=== PATIENT | male | born 1990 | race African-American/Black ===

== ENCOUNTER 2019-08-18 17:35 | Emergency (ER) | payer BC ==
[2019-08-18] MEDS ORDERED: Sodium Chloride 0.9% 10 ML Syringe FLUSH PRN (17:41)
[2019-08-18] MEDS ORDERED: Sodium Chloride 0.9% 10 ML SDV IV PRN (17:41)
[2019-08-18] MEDS ORDERED: Sodium Chloride 0.9% 1,000 ML IV STA (17:41)
[2019-08-18] MEDS ORDERED: Metoclopramide 10 MG/2 ML SDV IVPUSH ONE (17:41)
[2019-08-18] MEDS ORDERED: Sodium Chloride 0.9% 2.5 ML Syringe FLUSH PRN (17:41)
--- NOTE | 2019-08-18 17:58 | CT ---
Head CT Technique: Multiple axial sections through the brain were obtained. Intravenous contrast was not utilized. Comparison: No prior intracranial imaging is available. Findings: Ventricles along with basal cisterns and sulci over the convexities appear within normal limits for the patient's age. No abnormal parenchymal densities are seen. No evidence of intracranial hemorrhage. No midline shift or mass-effect is seen. Soft tissue density is noted within the right side of the sphenoid sinus most likely due to retention cyst. Possible minimal retention cyst with the left side of the sphenoid sinus. No acute mastoid sinus findings are seen. Bone window settings shows no acute calvarial abnormality. Impression: 1. Sinus findings which are most likely chronic. 2. No acute intracranial abnormality is identified. Diagnostic code #2 This report was dictated in MDT
--- NOTE | 2019-08-18 18:02 | CR ---
Chest: AP view of the chest was obtained. Comparison: No prior study. Scoliosis is noted within the spine. Heart size and mediastinum are normal. Lungs are clear with no acute parenchymal change. Impression: 1. Scoliosis. 2. Nothing acute is seen on AP chest x-ray. Diagnostic code #2 This report was dictated in MDT
--- NOTE | 2019-08-18 18:37 | EDM.PDOC ---
ED [facility] GENERAL MEDICAL PROBLEM - General Chief Complaint: Neurological Problem Stated Complaint: ARM NUMBNESS,BLURRED VISION,SHORTNESS OF BREATHE Time Seen by Provider: 08/18/19 17:40 - History of Present Illness INITIAL COMMENTS - FREE TEXT/NARRATIVE: HISTORY AND PHYSICAL: History of present illness: 28-year-old male who presents with a sudden onset of headache followed by left eye blurred vision and left upper extremity weakness with paresthesias in his left upper extremity. Is unusual for him. He does have migraines. He did take some Aleve but did not get any better so he came to the emergency department. He denies any fever or trauma. No other associated signs or symptoms. No other modifying, aggravating or alleviating factors. Review of systems: A 10-point review of systems, other than pertinent positives and negatives as stated per HPI, is otherwise negative. Past medical history: As per history of present illness and as reviewed below otherwise noncontributory. Surgical history: As per history of present illness and as reviewed below otherwise noncontributory. Social history: No reported history of drug or alcohol abuse. Family history: As per history of present illness and as reviewed below otherwise noncontributory. Physical exam: VITAL SIGNS: Reviewed. GENERAL: Concerned about his condition but awake alert and appropriate and does not appear to be in physiologic distress. HEAD: No signs of head trauma. EYES: Pupils are equal. Extraocular motions intact. EARS: Hearing grossly intact. MOUTH: Oropharynx is normal. NECK: No adenopathy, no JVD. CHEST: Chest with clear breath sounds bilaterally. No wheezes, rales, or rhonchi. CARDIAC: Regular rate and rhythm. Normal S1 and S2, without murmurs, gallops, or rubs. VASCULAR: Peripheral pulses normal and equal in all extremities. ABDOMEN: Soft, without detectable tenderness. No sign of distention. No rebound or guarding, and no masses palpated. MUSCULOSKELETAL: Good range of motion of all major joints. Extremities without clubbing, cyanosis or edema. NEUROLOGIC EXAM: Alert and oriented x 3. Diminished strength in the left upper extremity compared to the right. Some diminished sensation in the left upper extremity and left face. Otherwise normal exam. Speech normal. Follows commands. PSYCHIATRIC: Mood normal. SKIN: No rash or lesions. Initial Differential Diagnosis & Plan: Atypical migraine, stroke syndrome, mass lesion Given the unusual symptoms we will perform a stroke code. I will give some Reglan right away. We will reassess. Definitive disposition and diagnosis as appropriate pending reevaluation and review of above. - Related Data Allergies Allergy/AdvReac Type Severity Reaction Status Date / Time No Known Allergies Allergy Verified 08/18/19 17:52 Home Meds: Home Meds Diclofenac Potassium [Cambia] 50 mg PO TID #30 powd.pack 08/18/19 [Rx] Metoclopramide HCl [Reglan] 10 mg PO DAILY #30 tablet 08/18/19 [Rx] Past Medical History Neurological History: Reports: Seizure, Other (See Below) Other Neuro History: states he is not on medication for sz - Past Surgical History Neurological Surgical History: Reports: None Social & Family History - Family History Family Medical History: Noncontributory - Tobacco Use Smoking Status *Q: Never Smoker Second Hand Smoke Exposure: No - Caffeine Use Caffeine Use: Reports: None - Recreational Drug Use Recreational Drug Use: No ED ROS GENERAL - Review of Systems Review Of Systems: Unable To Obtain (noted) Reason Not Obtained: noted ED EXAM, NEURO - Physical Exam Exam: See Below (noted) EKG INTERPRETATION EKG Interpretation Comments: 12 lead EKG interpretation Obtained: August 18, 2027 180 Rhythm: Sinus Rate: 84 Dell: Normal Intervals: Normal ST/T Segments: No acute ischemic changes Interpretation: Sinus Rhythm Course - Vital Signs Last Recorded V/S: Last Vital Signs Temp 96.6 F L 08/18/19 17:37 Pulse 106 H 08/18/19 17:37 Resp 17 08/18/19 17:37 BP 156/103 H 08/18/19 17:37 Pulse Ox 95 08/18/19 17:37 - Orders/Labs/Meds Orders: Active Orders 24 hr Category Date Time Status Assess Neurological Status [RC] ASDIRECTED Care 08/18/19 17:41 Active Bedrest [RC] ASDIRECTED Care 08/18/19 17:41 Active Blood Glucose Check, Bedside [RC] ONETIME Care 08/18/19 17:41 Active Cardiac Monitoring [RC] . DIRECTED Care 08/18/19 17:41 Active EKG Documentation Completion [RC] STAT Care 08/18/19 17:41 Active Height and Weight [RC] UPON Care 08/18/19 17:41 Active Initiate Acute Stroke Protocol [RC] STAT Care 08/18/19 17:41 Active NIH Stroke Scale [RC] ASDIRECTED Care 08/18/19 17:41 Active Nursing Bedside Swallow Screen [RC] ASDIRECTED Care 08/18/19 17:41 Active Oxygen Therapy [RC] ASDIRECTED Care 08/18/19 17:41 Active Stroke Education, General [RC] Click to Edit Care 08/18/19 17:41 Active Vital Signs [RC] Q15M Care 08/18/19 17:41 Active Ang Head [CT] Stat Exams 08/18/19 17:41 Stop Req Ang Neck [CT] Stat Exams 08/18/19 17:41 Stop Req COMPREHENSIVE METABOLIC PN,CMP [CHEM] Stat Lab 08/18/19 17:13 Received TROPONIN I [CHEM] Stat Lab 08/18/19 17:13 Received TSH [CHEM] Stat Lab 08/18/19 17:13 Received Sodium Chloride 0.9% [Normal Saline] Med 08/18/19 17:41 Active 10 ml IV ASDIRECTED PRN Sodium Chloride 0.9% [Normal Saline] 1,000 ml Med 08/18/19 17:41 Active IV NOW Sodium Chloride 0.9% [Saline Flush] Med 08/18/19 17:41 Active 10 ml FLUSH ASDIRECTED PRN Sodium Chloride 0.9% [Saline Flush] Med 08/18/19 17:41 Active 2.5 ml FLUSH ASDIRECTED PRN Peripheral IV Insertion Adult [OM.PC] Stat Oth 08/18/19 17:41 Ordered Peripheral IV Insertion Adult [OM.PC] Stat Oth 08/18/19 17:41 Ordered Medication Orders Sodium Chloride (Normal Saline) 1,000 mls @ 125 mls/hr IV NOW STA Stop: 08/19/19 01:40 Last Admin: 08/18/19 18:01 Dose: 125 mls/hr Sodium Chloride (Saline Flush) 10 ml FLUSH ASDIRECTED PRN PRN Reason: Keep Vein Open Sodium Chloride (Saline Flush) 2.5 ml FLUSH ASDIRECTED PRN PRN Reason: Keep Vein Open Sodium Chloride (Normal Saline) 10 ml IV ASDIRECTED PRN PRN Reason: IV Use Labs: Laboratory Tests 08/18/19 08/18/19 Range/Units 17:13 17:13 WBC 8.75 (4.0-11.0) K/uL RBC 4.61 (4.50-5.90) M/uL Hgb 13.6 (13.0-17.0) g/dL Hct 41.0 (38.0-50.0) % MCV 88.9 (80.0-98.0) fL MCH 29.5 (27.0-32.0) pg MCHC 33.2 (31.0-37.0) g/dL RDW Std Deviation 46.1 (28.0-62.0) fl RDW Coeff of Berkley 14 (11.0-15.0) % Plt Count 236 (150-400) K/uL MPV 10.30 (7.40-12.00) fL Neut % (Auto) 48.2 (48.0-80.0) % Lymph % (Auto) 37.3 (16.0-40.0) % Austin % (Auto) 8.9 (0.0-15.0) % Eos % (Auto) 5.4 (0.0-7.0) % Baso % (Auto) 0.2 (0.0-1.5) % Neut # (Auto) 4.2 (1.4-5.7) K/uL Lymph # (Auto) 3.3 H (0.6-2.4) K/uL Austin # (Auto) 0.8 (0.0-0.8) K/uL Eos # (Auto) 0.5 (0.0-0.7) K/uL Baso # (Auto) 0.0 (0.0-0.1) K/uL Nucleated RBC % 0.0 /100WBC Nucleated RBCs # 0 K/uL INR 0.95 APTT 27.0 (18.6-31.3) SEC Meds: Medications Generic Name Dose Route Start Last Admin Trade Name Freq PRN Reason Stop Dose Admin Sodium Chloride 1,000 mls @ 125 mls/hr 08/18/19 17:41 08/18/19 18:01 Normal Saline IV 08/19/19 01:40 125 mls/hr NOW STA Administration Sodium Chloride 10 ml 08/18/19 17:41 Saline Flush FLUSH ASDIRECTED PRN Keep Vein Open Sodium Chloride 2.5 ml 08/18/19 17:41 Saline Flush FLUSH ASDIRECTED PRN Keep Vein Open Sodium Chloride 10 ml 08/18/19 17:41 Normal Saline IV ASDIRECTED PRN IV Use Discontinued Medications Generic Name Dose Route Start Last Admin Trade Name Mario PRN Reason Stop Dose Admin Metoclopramide HCl 10 mg 08/18/19 17:41 08/18/19 18:02 Reglan IVPUSH 08/18/19 17:42 10 mg ONETIME ONE Administration - Re-Assessments/Exams Free Text/Narrative Re-Assessment/Exam: 08/18/19 18:41 Patient is feeling completely resolved. I do not feel he needs a CT angios of the head and neck. Given his complete resolution he is also not a TPA candidate. I feel that this represents an atypical migraine. My diagnostic impression: 1. Atypical migraine; resolved Departure - Departure Time of Disposition: 18:33 Disposition: Home, Self-Care 01 Clinical Impression: Atypical migraine - Discharge Information *PRESCRIPTION DRUG MONITORING PROGRAM REVIEWED*: Not Applicable *COPY OF PRESCRIPTION DRUG MONITORING REPORT IN PATIENT KALLIE: Not Applicable Prescriptions: Diclofenac Potassium [Cambia] 50 mg PO TID #30 powd.pack Metoclopramide HCl [Reglan] 10 mg PO DAILY #30 tablet Instructions: Migraine Headache, [id number] Forms: ED Department Discharge Additional Instructions: The following information is given to patients seen in the emergency department who are being discharged to home. This information is to outline your options for follow-up care. We provide all patients seen in our emergency department with a follow-up referral. The need for follow-up, as well as the timing and circumstances, are variable depending upon the specifics of your emergency department visit. If you don't have a primary care physician on staff, we will provide you with a referral. We always advise you to contact your personal physician following an emergency department visit to inform them of the circumstance of the visit and for follow-up with them and/or the need for any referrals to a consulting specialist. The emergency department will also refer you to a specialist when appropriate. This referral assures that you have the opportunity for follow-up care with a specialist. All of these measure are taken in an effort to provide you with optimal care, which includes your follow-up. Thank you for coming to the [facility] urgency department for your care today. It was Dr. Person's pleasure to take care of you. Your head CT and EKG are normal today. Your labs are normal. You had the classic presentation for an atypical migraine. Please take the medications as prescribed. You are always welcome to come back if you have this again in your concern. Under all circumstances we always encourage you to contact your private physician who remains a resource for coordinating your care. When calling for follow-up care, please make the office aware that this follow-up is from your recent emergency room visit. If for any reason you are refused follow-up, please contact the [facility] Emergency Department at and asked to speak to the emergency department charge nurse. Sepsis Event Note - Evaluation Sepsis Screening Result: No Definite Risk - Focused Exam Vital Signs: Vital Signs Temp Pulse Resp BP Pulse Ox 08/18/19 17:37 96.6 F L 106 H 17 156/103 H 95 Date Exam was Performed: 08/18/19 Time Exam was Performed: 18:39 - My Orders Last 24 Hours: My Active Orders 08/18/19 17:13 COMPREHENSIVE METABOLIC PN,CMP [CHEM] Stat TROPONIN I [CHEM] Stat TSH [CHEM] Stat 08/18/19 17:41 Assess Neurological Status [RC] ASDIRECTED Bedrest [RC] ASDIRECTED Blood Glucose Check, Bedside [RC] ONETIME Cardiac Monitoring [RC] . DIRECTED EKG Documentation Completion [RC] STAT Height and Weight [RC] UPON Initiate Acute Stroke Protocol [RC] STAT NIH Stroke Scale [RC] ASDIRECTED Nursing Bedside Swallow Screen [RC] ASDIRECTED Oxygen Therapy [RC] ASDIRECTED Stroke Education, General [RC] Click to Edit Vital Signs [RC] Q15M Ang Head [CT] Stat Ang Neck [CT] Stat Sodium Chloride 0.9% [Normal Saline] 10 ml IV ASDIRECTED PRN Sodium Chloride 0.9% [Normal Saline] 1,000 ml IV NOW Sodium Chloride 0.9% [Saline Flush] 10 ml FLUSH ASDIRECTED PRN Sodium Chloride 0.9% [Saline Flush] 2.5 ml FLUSH ASDIRECTED PRN Peripheral IV Insertion Adult [OM.PC] Stat Peripheral IV Insertion Adult [OM.PC] Stat - Assessment/Plan Last 24 Hours: My Active Orders 08/18/19 17:13 COMPREHENSIVE METABOLIC PN,CMP [CHEM] Stat TROPONIN I [CHEM] Stat TSH [CHEM] Stat 08/18/19 17:41 Assess Neurological Status [RC] ASDIRECTED Bedrest [RC] ASDIRECTED Blood Glucose Check, Bedside [RC] ONETIME Cardiac Monitoring [RC] . DIRECTED EKG Documentation Completion [RC] STAT Height and Weight [RC] UPON Initiate Acute Stroke Protocol [RC] STAT NIH Stroke Scale [RC] ASDIRECTED Nursing Bedside Swallow Screen [RC] ASDIRECTED Oxygen Therapy [RC] ASDIRECTED Stroke Education, General [RC] Click to Edit Vital Signs [RC] Q15M Ang Head [CT] Stat Ang Neck [CT] Stat Sodium Chloride 0.9% [Normal Saline] 10 ml IV ASDIRECTED PRN Sodium Chloride 0.9% [Normal Saline] 1,000 ml IV NOW Sodium Chloride 0.9% [Saline Flush] 10 ml FLUSH ASDIRECTED PRN Sodium Chloride 0.9% [Saline Flush] 2.5 ml FLUSH ASDIRECTED PRN Peripheral IV Insertion Adult [OM.PC] Stat Peripheral IV Insertion Adult [OM.PC] Stat
[2019-08-18 18:40] LABS: BLOOD UREA NITROGEN,BUN 15 mg/dL (7.0-18.0); CARBON DIOXIDE,CO2 28.5 mmol/L (21.0-32.0); CHLORIDE,CL 103 mmol/L (98-107); GLUCOSE RANDOM 93 mg/dL (74-106); POTASSIUM,K 3.8 mmol/L (3.5-5.1); SODIUM,NA 141 mmol/L (136-148)
== END 2019-08-18 18:49 | disposition home or self-care (01) ==
LOC: MW.ED 17:35
DX: G43.909 Migraine, unspecified, not intractable, without status migrainosus (principal)
CPT/HCPCS: 36415; 70450; 71045; 80053; 84443; 84484; 85025; 85610; 85730; 93005; 96374; 99284; J2765; J7030

== ENCOUNTER 2019-12-12 12:19 | Emergency (ER) | payer BC, OTHER ==
[2019-12-12] MEDS ORDERED: Rabies Vaccine (Avian) 2.5 Unit Inj Kit IM ONE (13:33)
[2019-12-12] MEDS ORDERED: Rabies Immune Globulin PF 150 Units/ML 10 ML SDV IM ONE (13:33)
[2019-12-12] MEDS ORDERED: Diphtheria,Pertussis(Acell),Tetanus Vaccine 0.5 ML Syringe IM ONE (13:33)
--- NOTE | 2019-12-12 13:40 | EDM.PDOC ---
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 He was at a house trying to reach for a feral cat and was bitten in the right hand. He is right-handed. Tetanus status unknown. Patient denies fever, chills, headache, chest pain, shortness of breath, abdominal pain, focal numbness or weakness. ROS: A 10-point review of systems, other than pertinent positives and negatives as stated per HPI, is otherwise negative Past medical history: No additional pertinent history Past Surgical history: No additional pertinent history Social history: No additional pertinent history Family history: No additional pertinent history PHYSICAL EXAM General: AOx4, GCS = 15, No distress HEENT: dry mucous membrane Neck: supple, no meningismus, no Kernig or Brudzinski Cardiac: S1S2 RRR Respiratory: CTAB, no crackles or rales, no wheezing Abdomen: Soft, nontender, no rebound or guarding, nondistended, no pulsatile mass. Back: nontender Musculoskeletal: NVI distally, no deformity, puncture wounds to the right MCP joint, with no surrounding erythema or swelling or drainage. Neuro: No focal deficits, CN 2 - 12 WNL. Onset: Today right hand, right leg Pain Score (Numeric/FACES): 3 - Related Data Allergies Allergy/AdvReac Type Severity Reaction Status Date / Time egg Allergy Seizure Verified 12/12/19 13:15 Home Meds: Home Meds Amoxicillin/Potassium Clav [Augmentin 875-125 Tablet] 1 each PO BID #10 tablet 12/12/19 [Rx] Past Medical History Neurological History: Reports: Seizure, Other (See Below) Other Neuro History: states he is not on medication for sz. Epilepsy - Infectious Disease History Infectious Disease History: Reports: Chicken Pox - Past Surgical History GI Surgical History: Reports: Other (See Below) Other GI Surgeries/Procedures: stomach surgery as a child Neurological Surgical History: Reports: None Social & Family History - Family History Family Medical History: Noncontributory - Tobacco Use Smoking Status *Q: Never Smoker - Caffeine Use Caffeine Use: Reports: None - Recreational Drug Use Recreational Drug Use: No ED ROS GENERAL - Review of Systems Review Of Systems: See Below (see dictation) ED EXAM, ANIMAL BITE - Physical Exam Exam: See Below (see dictation) Course - Vital Signs Last Recorded V/S: Last Vital Signs Temp 97.4 F 12/12/19 13:12 Pulse 77 12/12/19 13:12 Resp 16 12/12/19 13:12 BP 125/71 12/12/19 13:12 Pulse Ox 95 12/12/19 13:12 - Orders/Labs/Meds Orders: Active Orders 24 hr Category Date Time Status Vaccines to be Administered [RC] PER UNIT ROUTINE Care 12/12/19 13:35 Active Meds: Medications Discontinued Medications Generic Name Dose Route Start Last Admin Trade Name Freq PRN Reason Stop Dose Admin Diphtheria/Tetanus/Acell Pertussis 0.5 ml 12/12/19 13:33 12/12/19 13:58 Adacel IM 12/12/19 13:34 0.5 ml .ONCE ONE Administration Rabies Immune Globulin 1,860 unit 12/12/19 13:33 12/12/19 14:15 Hyperrab S/D IM 12/12/19 13:34 1,860 unit .ONCE ONE Administration Rabies Vaccine 2.5 unit 12/12/19 13:33 12/12/19 14:13 Rabavert IM 12/12/19 13:34 2.5 unit .ONCE ONE Administration - Re-Assessments/Exams Free Text/Narrative Re-Assessment/Exam: 12/12/19 13:36 After Tdap, rabies immunoglobulin, rabies vaccine in the ER, the patient improved and is currently stable for discharge. I performed a repeat exam and did not appreciate new abnormal findings. Patient exhibits normal vital signs and has a normal gait on road test. I advised the patient to return to the ER for reevaluation if symptoms worsened, including fever, worsening pain, or any other worrisome symptoms. I instructed the patient to follow up with their PCP on days 3, 7, 14 for repeat rabies vaccine injection. MEDICAL DECISION MAKING: I reviewed the patients past medical records, lab and radiographic findings. I discussed the case with the patient. My differential diagnosis included: Cat bite. No suspicion for infection or flexor tenosynovitis. Departure - Departure Time of Disposition: 13:37 Disposition: Home, Self-Care 01 Condition: Good Clinical Impression: Cat bite - Discharge Information *PRESCRIPTION DRUG MONITORING PROGRAM REVIEWED*: Not Applicable *COPY OF PRESCRIPTION DRUG MONITORING REPORT IN PATIENT KALLIE: Not Applicable Prescriptions: Amoxicillin/Potassium Clav [Augmentin 875-125 Tablet] 1 each PO BID #10 tablet Instructions: Animal Bite, Adult, [id number] Referrals: PCP,Unobtain [Primary Care Provider] - Forms: ED Department Discharge Additional Instructions: The need for follow-up, as well as the timing and circumstances, are variable depending upon the specifics of your emergency department visit. If you don't have a primary care physician on staff, we will provide you with a referral. We always advise you to contact your personal physician following an emergency department visit to inform them of the circumstance of the visit and for follow-up with them and/or the need for any referrals to a consulting specialist. The emergency department will also refer you to a specialist when appropriate. This referral assures that you have the opportunity for follow-up care with a specialist. All of these measure are taken in an effort to provide you with optimal care, which includes your follow-up. Under all circumstances we always encourage you to contact your private physician who remains a resource for coordinating your care. When calling for follow-up care, please make the office aware that this follow-up is from your recent emergency room visit. If for any reason you are refused follow-up, please contact the [facility] Emergency Department at and asked to speak to the emergency department charge nurse. you need to get repeated rabies vaccine on days 3, 7, 14. If you do not have a primary care doctor, please follow up with the clinics for repeated rabies vaccine on days 3, 7, 14. [facility] [address] [place] [id number] [facility] [address] [place] [id number] Sepsis Event Note (ED) - Evaluation Sepsis Screening Result: No Definite Risk - Focused Exam Vital Signs: Vital Signs Temp Pulse Resp BP Pulse Ox 12/12/19 13:12 97.4 F 77 16 125/71 95 - My Orders Last 24 Hours: My Active Orders 12/12/19 13:35 Vaccines to be Administered [RC] PER UNIT ROUTINE - Assessment/Plan Last 24 Hours: My Active Orders 12/12/19 13:35 Vaccines to be Administered [RC] PER UNIT ROUTINE
[2019-12-12] MEDS ORDERED: Rabies Immune Globulin PF 150 Units/ML 2 ML SDV IM ONE (14:00)
== END 2019-12-12 15:12 | disposition home or self-care (01) ==
LOC: MW.ED 12:19
DX: S61.451A Open bite of right hand, initial encounter (principal); Z23 Encounter for immunization; Z91.012 Allergy to eggs; W55.01XA Bitten by cat, initial encounter
CPT/HCPCS: 90375; 90471; 90472; 90675; 90715; 96372; 99282; 99283